=== PATIENT | male | born 1990 | race Caucasian/White ===

== ENCOUNTER 2019-03-17 11:06 | Emergency (ER) | payer SELFPAY ==
[2019-03-17] MEDS ORDERED: Fluorescein 0.6 MG Ophth Strip EYELF ONE (11:13)
[2019-03-17] MEDS ORDERED: Proparacaine 0.5% Ophth Soln 15 ML Bottle EYELF ONE (11:15)
--- NOTE | 2019-03-17 13:05 | EDM.PDOC ---
ED HPI GENERAL MEDICAL PROBLEM - General Chief Complaint: Eye Problems Stated Complaint: L EYE INJURY Time Seen by Provider: 03/17/19 12:40 Source of Information: Reports: Patient, RN Notes Reviewed History Limitations: Reports: No Limitations - History of Present Illness INITIAL COMMENTS - FREE TEXT/NARRATIVE: Patient presents to the ED for the evaluation of a left eye injury. The patient states that he was in his garage 2 days ago and he was using a cutting wheel. He states he was wearing eye protection but he felt that he got some debris into his eye and he feels that it's into his upper eyelid. He does not wear glasses or contacts. He notes that his left eye has been red swollen and irritated since then. He did try some at home eyedrops however this is not provided much relief. His girlfriend present did try to give him some ibuprofen , but this also has not provided much relief. He does not complain of any blurry vision or double vision at this time. Left Eye Pain Score (Numeric/FACES): 3 - Related Data Allergies Allergy/AdvReac Type Severity Reaction Status Date / Time Penicillins Allergy Cannot Verified 03/17/19 11:19 Remember Home Meds: Home Meds Ketorolac [Acular 0.5% Ophth Soln] 1 drop OP Q6H #1 bottle 03/17/19 [Rx] Past Medical History - Past Health History Medical/Surgical History: Denies Medical/Surgical History Musculoskeletal History: Reports: Other (See Below) Other Musculoskeletal History: left wri st fracture Neurological History: Reports: Concussion - Past Surgical History HEENT Surgical History: Reports: Oral Surgery Social & Family History - Tobacco Use Smoking Status *Q: Current Every Day Smoker Years of Tobacco use: 11 Packs/Tins Daily: 0.4 - Caffeine Use Caffeine Use: Reports: Coffee - Recreational Drug Use Recreational Drug Use: No ED ROS GENERAL - Review of Systems Review Of Systems: See Below Constitutional: Reports: No Symptoms HEENT: Reports: Eye Pain. Denies: Vision Change Respiratory: Reports: No Symptoms Cardiovascular: Reports: No Symptoms Endocrine: Reports: No Symptoms GI/Abdominal: Reports: No Symptoms : Reports: No Symptoms Musculoskeletal: Reports: No Symptoms Skin: Reports: No Symptoms Neurological: Reports: No Symptoms Psychiatric: Reports: No Symptoms Hematologic/Lymphatic: Reports: No Symptoms Immunologic: Reports: No Symptoms ED EXAM GENERAL W FULL EYE - Physical Exam Exam: See Below Exam Limited By: No Limitations General Appearance: Alert, WD/WN, No Apparent Distress Eye Exam: Left Eye: Conjunctival Injection, Foreign Body (on mid cornea, embedded), PERRL, Bilateral Eye: EOMI Visual Acuity (R) 20/: 20 Visual Acuity (L) 20/: 20 With Correction: No Eyelids: Bilateral: Normal Appearance, Lid Everted for Exam Conjunctiva & Sclera: Left: Injected Cornea Exam: Left: Foreign Body, Examined with Flourescein Extraocular Movements: Bilateral: Intact Pupils: Normal Accommodation Pupillary Size: Bilateral: 3 mm Pupillary Reaction: Bilateral: Brisk Anterior Chamber: Bilateral: Normal Appearance Respiratory/Chest: No Respiratory Distress, Lungs Clear, Normal Breath Sounds, No Accessory Muscle Use, Chest Non-Tender Cardiovascular: Normal Peripheral Pulses, Regular Rate, Rhythm, No Murmur Extremities: Normal Inspection, Normal Capillary Refill Neurological: Alert, Oriented, Normal Cognition, Normal Gait, No Motor/Sensory Deficits Psychiatric: Normal Affect, Normal Mood Course - Vital Signs Last Recorded V/S: Last Vital Signs Temp 98.6 F 03/17/19 11:22 Pulse 60 03/17/19 11:22 Resp 20 03/17/19 11:22 BP 135/98 H 03/17/19 11:22 Pulse Ox 99 03/17/19 11:22 - Orders/Labs/Meds Meds: Medications Discontinued Medications Generic Name Dose Route Start Last Admin Trade Name Dennis PRN Reason Stop Dose Admin Erythromycin 1 gm 03/17/19 14:01 Erythromycin 0.5% Ophth Oint EYELF 03/17/19 14:02 ONETIME ONE Fluorescein Sodium 0.6 mg 03/17/19 11:13 Ful-Roma EYELF 03/17/19 11:14 ONETIME ONE Proparacaine HCl 2 ml 03/17/19 11:15 03/17/19 11:16 Proparacaine 0.5% Ophth Soln EYELF 03/17/19 11:16 2 drop ONETIME ONE Administration - Re-Assessments/Exams Free Text/Narrative Re-Assessment/Exam: 03/17/19 13:04 Patient presents to the ED for evaluation of a left eye injury. I did examine his eye with a slitlamp, I did not identify any corneal abrasions at this time, however there is a foreign body noted to the mid cornea, I did try to sweep this with a wisp of a cotton swab, however it is not dislodged at this time. I did consult Dr. Montes De Oca to see if he would be able to help me remove the object. 03/17/19 14:03 Dr. Montes De Oca was able to remove the foreign body with a 27-gauge needle under microscopy with the slit-lamp. He recommends that the patient he was erythromycin ointment to the affected eye, 1 cm ribbon every 2-4 hours, and Acular ophthalmic drops, one drop every 6 hours and then ophthalmic follow-up on Wednesday to make sure that his vision is still okay. Patient is okay with this. Departure - Departure Time of Disposition: 14:04 Disposition: Home, Self-Care 01 Condition: Fair Clinical Impression: Foreign body in eyeball, left Qualifiers: Encounter type: initial encounter Qualified Code(s): S05.52XA - Penetrating wound with foreign body of left eyeball, initial encounter - Discharge Information *PRESCRIPTION DRUG MONITORING PROGRAM REVIEWED*: No *COPY OF PRESCRIPTION DRUG MONITORING REPORT IN PATIENT SERGIO: No Prescriptions: Ketorolac [Acular 0.5% Ophth Soln] 1 drop OP Q6H #1 bottle Instructions: Eye Foreign Body, [id number] Referrals: PCP,None [Primary Care Provider] - Forms: ED Department Discharge Additional Instructions: You have been evaluated in the ED today for the foreign body in your eye. This was removed in the ED under microscopy. You have been provided with some erythromycin ophthalmic ointment, please use 1 cm ribbon to the left eye lid, Q2 -4 hours PRN. You have been prescribed a prescription for Acular, these are pain relief eyedrops. Use 1 drop in the left eye every 6 hours as needed. This has been sent to the clinic pharmacy located in the [facility]. Please follow up with an aviation ordnance officer on Wednesday, or as early as able to make sure that your vision is improving, and that there is no rust ring. Please return to the ED if your symptoms should change or worsen.
[2019-03-17] MEDS ORDERED: Erythromycin Base 0.5% Ophth Oint 1 GM Tube EYELF ONE (14:01)
== END 2019-03-17 14:30 | disposition home or self-care (01) ==
LOC: JD.ED 11:06
DX: T15.02XA Foreign body in cornea, left eye, initial encounter (principal); F17.210 Nicotine dependence, cigarettes, uncomplicated; Z98.890 Other specified postprocedural states; Z88.0 Allergy status to penicillin
CPT/HCPCS: 65222; 99283; A9270; 99282